=== PATIENT | female | born 1965 | race Caucasian/White ===

== ENCOUNTER 2017-05-13 18:28 | Emergency (ER) | payer OTHER ==
[~2017-05-13] VITALS: Ht 162.6 cm; Wt 104.5 kg
[~2017-05-13 18:28] MED LIST: ALPR.25 PO; PROT40TA PO
[2017-05-13 18:29] VITALS: BP 137/66; PULSE 121; RESP 20; TEMP 99.5; O2SAT 99
[2017-05-13 21:00] VITALS: BP 136/65; PULSE 116; RESP 18; O2SAT 95
[2017-05-13] MEDS ORDERED: methylPREDNISolone SOD SUCC 125 MG/2 ML VIAL IV PUSH ONE (21:00)
[2017-05-13] MEDS ORDERED: SODIUM CHLORIDE 0.9% FLUSH 10 ML FLUSH IVF PRN (21:00)
[2017-05-13] MEDS: RESP: ALBUTEROL 2.5 MG/IPRATROPIUM 0.5 MG NEB (SCH) INH ×2 (21:01→21:02)
[2017-05-13] MEDS ORDERED: ZITHTAB PO (21:04)
[2017-05-13] MEDS ORDERED: PRED10PA2 PO (21:04)
[2017-05-13] MEDS ORDERED: VENTAER INH (21:04)
--- NOTE | 2017-05-13 21:05 | PD ---
HPI . Cough Chief Complaint: Chest Pain Time Seen by Provider: 20:45 Travel History International Travel<30 days: No Contact w/Intl Traveler<30days: No Traveled to known affect area: No History of Present Illness HPI Patient presents with chief complaint of cough and chest pain. Onset was about 2 days ago. Exacerbated by coughing. She denies sputum production. She does have a fever. She has been taking DayQuil and NyQuil without relief. She reports a history of COPD but does not take any medications for her COPD. She states her COPD is very mild. The triage nurse got a pain level of 5/10. She reports her pain level is currently 0/10. The patient is here with her daughter who works here as a nurse. PFSH Past Medical History Autoimmune Disease: No Blood Disorders: No Heart Rhythm Problems: Yes (BRADYCARDIA) Cancer: No Cardiac Catheterization: Yes (2 MOS AGO --NEGATIVE RESULTS) Cardiovascular Problems: Yes Chest Pain: Yes COPD: Yes Diabetes: Yes Diminished Hearing: No Endocrine: No Genitourinary: No Musculoskeletal: No Neurologic: Yes (VERTIGO) Psychiatric: Yes (PANICK ATTACK) Respiratory: Yes : 3 Para: 2 Miscarriage: 1 : 0 Tubal Ligation: Yes Past Surgical History Gynecologic Surgery: Yes (TUBAL LIGATION IN 1997, D&C-LAPOROSCOPY) Hysterectomy: Yes Other Surgery: Yes Social History Alcohol Use: No Tobacco Use: Yes (QUIT FOR 16 YR) Substance Use: No (DENIES) Allergies-Medications (Allergen,Severity, Reaction): Coded Allergies: aspirin (Unverified Allergy, Severe, TONGUE SWELLS, 01/25/17) caffeine (Unverified Allergy, Severe, TONGUE SWELLS, 01/25/17) meperidine (Unverified Allergy, Severe, MEPERGAN FORT ONLY HAS PROBLEM WITH DEMROL COMPONENT, 01/25/17) orphenadrine (Unverified Allergy, Severe, TONGUE SWELLS, 01/25/17) oseltamivir (Unverified Adverse Reaction, Severe, SHAKES, 01/25/17) albuterol (Unverified Adverse Reaction, Mild, SHAKING, 01/25/17) Uncoded Allergies: MEPERGAN FORTIS (Allergy, Severe, Rash, 03/09/05) Reported Meds & Prescriptions Reported Meds & Active Scripts Active Zithromax Z-Kaleb (Azithromycin) 250 Mg Dspk 250 Mg PO DIRECTED 500 MG (2 tabs) day 1, then 1 tab days 2-5. Ventolin Hfa 18 GM Inh (Albuterol Sulfate) 90 Mcg/Act Aer 2 Puff INH Q4H PRN Prednisone (48) 10 mg tab Dose Pack (Prednisone) 10 Mg Dspk 10 Mg PO DIRECTED Reported Xanax 0.25 Mg (Alprazolam) Alprazolam 0.25 mg Tab 1 Tab PO Q6H PRN Protonix (Pantoprazole Sodium) 40 Mg Tab 40 Mg PO DAILY Review of Systems Except as stated in HPI: all other systems reviewed are Neg General / Constitutional: Positive: Fever Cardiovascular: Positive: Chest Pain or Discomfort Respiratory: Positive: Cough, Shortness of Breath Physical Exam Narrative GENERAL: Awake and alert and in no acute distress. SKIN: Warm and dry. Good color. HEAD: Normocephalic/atraumatic. EYES: Pupils are equal. Extraocular movements are intact. NECK: Normal range of motion. CARDIOVASCULAR: Regular rate and rhythm. RESPIRATORY: Nonlabored respirations. Good air movement. Some end expiratory wheezing. MUSCULOSKELETAL: Atraumatic. NEUROLOGICAL: Nonfocal. PSYCHIATRIC: Appropriate mood and affect. Data Data Last Documented VS Vital Signs Date Time Temp Pulse Resp B/P (MAP) Pulse Ox O2 Delivery O2 Flow Rate FiO2 05/13/17 20:56 18 05/13/17 18:29 99.5 121 137/66 (89) 99 Room Air Orders Orders Electrocardiogram (05/13/17 ) Basic Metabolic Panel (Bmp) (05/13/17 20:50) Complete Blood Count With Diff (05/13/17 20:50) Chest, Single Ap (05/13/17 20:50) Iv Access Insert/Monitor (05/13/17 20:50) Methylprednisolone So Succ Inj (Solumedr (05/13/17 21:00) Albuterol-Ipratropium Neb (Duoneb Neb) (05/13/17 21:00) Sodium Chloride 0.9% Flush (Ns Flush) (05/13/17 21:00) Labs Laboratory Tests Test 05/13/17 21:10 White Blood Count 13.4 TH/MM3 Red Blood Count 4.59 MIL/MM3 Hemoglobin 13.1 GM/DL Hematocrit 38.4 % Mean Corpuscular Volume 83.6 FL Mean Corpuscular Hemoglobin 28.6 PG Mean Corpuscular Hemoglobin Concent 34.2 % Red Cell Distribution Width 13.8 % Platelet Count 334 TH/MM3 Mean Platelet Volume 8.8 FL Neutrophils (%) (Auto) 60.6 % Lymphocytes (%) (Auto) 27.6 % Monocytes (%) (Auto) 8.8 % Eosinophils (%) (Auto) 2.3 % Basophils (%) (Auto) 0.7 % Neutrophils # (Auto) 8.1 TH/MM3 Lymphocytes # (Auto) 3.7 TH/MM3 Monocytes # (Auto) 1.2 TH/MM3 Eosinophils # (Auto) 0.3 TH/MM3 Basophils # (Auto) 0.1 TH/MM3 CBC Comment DIFF FINAL Differential Comment Blood Urea Nitrogen 7 MG/DL Creatinine 0.72 MG/DL Random Glucose 106 MG/DL Calcium Level 9.0 MG/DL Sodium Level 137 MEQ/L Potassium Level 3.4 MEQ/L Chloride Level 102 MEQ/L Carbon Dioxide Level 28.8 MEQ/L Anion Gap 6 MEQ/L Estimat Glomerular Filtration Rate 86 ML/MIN [place] Medical Decision Making Medical Screen Exam Complete: Yes Emergency Medical Condition: Yes Interpretation(s) EKG shows a sinus rhythm with no acute ischemic change. She is tachycardic at 111. Differential Diagnosis Differential diagnosis includes but is not limited to viral respiratory illness , bronchitis, pneumonia, allergies, CHF, asthma/COPD. Narrative Course This patient presents stating that she has a history of mild COPD and has had a cough and chest discomfort for the last couple days. She has some very mild wheezing on exam. She'll be treated here with Solu-Medrol and DuoNeb. Chest x- ray and labs are pending. The respiratory therapist reports that the patient took the first nebulizer treatment but refuses the next 2. She states that they make her jittery. She states that she has nebulizer treatments at home. CBC & BMP Diagram 05/13/17 21:10 Calcium Level 9.0 CXR>>Minimal basilar atelectasis. The chest x-ray was independently viewed by me. This is a COPD patient who presents with cough, shortness of breath, fever. She 'll be treated with steroids, albuterol and Zithromax. Diagnosis Primary Impression: COPD (chronic obstructive pulmonary disease) with acute bronchitis Patient Instructions: Acute Bronchitis (DC), General Instructions Med/Other Pt SpecificInfo: Prescription(s) given Scripts Azithromycin (Zithromax Z-Kaleb) 250 Mg Dspk 250 MG PO DIRECTED for Infection, #1 DSPK 0 Refills 500 MG (2 tabs) day 1, then 1 tab days 2-5. Prov: Iris Pena MD 05/13/17 Albuterol 18 GM Inh (Ventolin Hfa 18 GM Inh) 90 Mcg/Act Aer 2 PUFF INH Q4H Y for SHORTNESS OF BREATH, #1 INHALER 0 Refills Prov: Iris Pena MD 05/13/17 Prednisone (48) 10 mg tab Dose Pack (Prednisone (48) 10 mg tab Dose Pack) 10 Mg Dspk 10 MG PO DIRECTED for Inflammation, #1 DSPK 0 Refills Prov: Iris Pena MD 05/13/17 Disposition: 01 DISCHARGE HOME Condition: Stable Iris Pena MD May 13, 2017 21:05
[2017-05-13 21:23] LABS: AUTOMATED NEUTROPHIL # 8.1 TH/MM3 (1.8-7.7); BASOPHIL # 0.1 TH/MM3 (0-0.2); BASOPHIL % 0.7 % (0.0-2.0); EOSINOPHIL # 0.3 TH/MM3 (0-0.4); EOSINOPHIL % 2.3 % (0.0-4.0); HEMATOCRIT 38.4 % (35.0-46.0); HEMO FLAGS DIFF FINAL; LYMPH % 27.6 % (9.0-44.0); LYMPHOCYTE # 3.7 TH/MM3 (1.0-4.8); MEAN CELL VOLUME 83.6 FL (80.0-100.0); MEAN CORPUSCULAR HEMOGLOBIN 28.6 PG (27.0-34.0); MEAN CORPUSCULAR HGB CONC 34.2 % (32.0-36.0); MONO % 8.8 % (0.0-8.0); NEUT % 60.6 % (16.0-70.0); PLATELET COUNT 334 TH/MM3 (150-450); RED BLOOD COUNT 4.59 MIL/MM3 (4.00-5.30); RED CELL DISTRIBUTION WIDTH 13.8 % (11.6-17.2); WHITE BLOOD COUNT 13.4 TH/MM3 (4.0-11.0)
[2017-05-13 21:39] LABS: BICARBONATE 28.8 MEQ/L (21.0-32.0); POTASSIUM 3.4 MEQ/L (3.5-5.1)
--- NOTE | 2017-05-13 22:01 | RADRPT ---
EXAM DATE/TIME: 05/13/2017 21:09 [facility] COMPARISON: No previous studies available for comparison. INDICATIONS : Chest pain and shortness of breath due to cough. MEDICAL HISTORY : Chronic obstructive pulmonary disease. Bradycardia, Diabetes, SURGICAL HISTORY : Tubal ligation. Hysterectomy. Cardiac cath. ENCOUNTER: Initial ACUITY: 3 days PAIN SCORE: 8/10 LOCATION: Bilateral chest FINDINGS: A single view of the chest demonstrates the lungs to be symmetrically aerated without evidence of mas s, infiltrate or effusion. Minimal basilar atelectasis. The cardiomediastinal contours are unremarka ble. Osseous structures are intact. CONCLUSION: 1. Minimal basilar atelectasis. Clinton Evans MD on May 13, 2017 at 21:59 Board Certified Radiologist. This report was verified electronically.
[2017-05-13 22:27] VITALS: BP 126/58; PULSE 119; RESP 18; O2SAT 95
--- NOTE | 2017-05-15 23:19 | EKG ---
Date Performed: 05/13/2017 Time Performed: 18:47:44 PTAGE: 51 years EKG: SINUS TACHYCARDIA POSSIBLE LEFT ATRIAL ENLARGEMENT ABNORMAL RHYTHM ECG PREVIOUS TRACING : 01/06/2016 17.55 Compared to the previous tracing sinus tachycardia is new DOCTOR: Aubrey Oleary Interpretating Date/Time 05/15/2017 23:17:50
== END 2017-05-13 22:38 | disposition home or self-care (01) ==
LOC: NEPD 18:28
DX: J44.9 Chronic obstructive pulmonary disease, unspecified (principal); J20.9 Acute bronchitis, unspecified; R00.0 Tachycardia, unspecified; E11.9 Type 2 diabetes mellitus without complications; R94.31 Abnormal electrocardiogram [ECG] [EKG]; Z79.899 Other long term (current) drug therapy; Z88.6 Allergy status to analgesic agent; Z88.8 Allergy status to other drugs, medicaments and biological substances
CPT/HCPCS: 71010; 80048; 85025; 93005; 94664; 96374; 99285; J2930

== ENCOUNTER 2017-07-12 16:01 | Emergency (ER) | payer OTHER ==
[~2017-07-12] VITALS: Ht 162.6 cm; Wt 109.1 kg
[~2017-07-12 16:01] MED LIST changes: +PRED10PA2 PO; +VENTAER INH; +ZITHTAB PO
[2017-07-12 16:02] VITALS: BP 149/71; PULSE 95; RESP 17; TEMP 98.5; O2SAT 99
--- NOTE | 2017-07-12 16:28 | RADRPT ---
EXAM DATE/TIME: 07/12/2017 16:25 [facility] COMPARISON: CHEST SINGLE AP, May 13, 2017, 21:09. INDICATIONS : Chest pain. MEDICAL HISTORY : None. SURGICAL HISTORY : None. ENCOUNTER: Initial ACUITY: 1 day PAIN SCORE: 4/10 LOCATION: Bilateral chest FINDINGS: PA and lateral views of the chest demonstrate the lungs to be symmetrically aerated without evidence of mass, infiltrate or effusion. The cardiomediastinal contours are unremarkable. Osseous structure s are intact. CONCLUSION: No acute disease. Emmanuel Oswald MD on July 12, 2017 at 16:25 Board Certified Radiologist. This report was verified electronically.
[2017-07-12] MEDS ORDERED: ATEN25TA PO (17:06)
[2017-07-12] MEDS ORDERED: PROT40TA PO (17:06)
[2017-07-12] MEDS ORDERED: VITA200013 PO (17:06)
--- NOTE | 2017-07-12 17:06 | PD ---
HPI Chief Complaint: Edema Time Seen by Provider: 17:06 Travel History International Travel<30 days: No Contact w/Intl Traveler<30days: No Traveled to known affect area: No History of Present Illness HPI 51-year-old female came to the emergency room with history of bilateral leg edema. Patient says this has been going on for the past 2 days. Yesterday she had some aching of both of her legs as well. She has occasional shortness of breath. Vital signs are stable. No history of congestive heart failure. No history of chest pain. Patient has not had swelling of her legs like this in the past. [facility] Past Medical History Narrative Medical List of her past medical, surgical, social and family history reviewed from the nursing note. Autoimmune Disease: No Blood Disorders: No Heart Rhythm Problems: Yes (BRADYCARDIA) Cancer: No Cardiac Catheterization: Yes (2 MOS AGO --NEGATIVE RESULTS) Cardiovascular Problems: Yes (HTN) Chest Pain: Yes COPD: Yes Diabetes: Yes Diminished Hearing: No Endocrine: No Genitourinary: No Musculoskeletal: No Neurologic: Yes (VERTIGO) Psychiatric: Yes (PANICK ATTACK) Respiratory: Yes : 3 Para: 2 Miscarriage: 1 : 0 Tubal Ligation: Yes Past Surgical History Gynecologic Surgery: Yes (TUBAL LIGATION IN 1997, D&C-LAPOROSCOPY, HYSTERECTOMY ) Hysterectomy: Yes Other Surgery: Yes Social History Alcohol Use: No Tobacco Use: Yes (QUIT FOR 20 YR) Substance Use: No (DENIES) Allergies-Medications (Allergen,Severity, Reaction): Coded Allergies: aspirin (Unverified Allergy, Severe, TONGUE SWELLS, 07/12/17) caffeine (Unverified Allergy, Severe, TONGUE SWELLS, 07/12/17) meperidine (Unverified Allergy, Severe, MEPERGAN FORT ONLY HAS PROBLEM WITH DEMROL COMPONENT, 07/12/17) orphenadrine (Unverified Allergy, Severe, TONGUE SWELLS, 07/12/17) oseltamivir (Unverified Adverse Reaction, Severe, SHAKES, 07/12/17) albuterol (Unverified Adverse Reaction, Mild, SHAKING, 07/12/17) Uncoded Allergies: MEPERGAN FORTIS (Allergy, Severe, Rash, 03/09/05) Comments List of her allergies reviewed from the nursing note. Reported Meds & Prescriptions Reported Meds & Active Scripts Active Ventolin Hfa 18 GM Inh (Albuterol Sulfate) 90 Mcg/Act Aer 2 Puff INH Q4H PRN Reported Vitamin D (Cholecalciferol) 2,000 Unit Cap 5,000 Tab PO DAILY Atenolol 25 Mg Tab 25 Mg PO DAILY Protonix (Pantoprazole Sodium) 40 Mg Tab 40 Mg PO DAILY Narrative Medication List of her home medications reviewed from the nursing note. Review of Systems Except as stated in HPI: all other systems reviewed are Neg Musculoskeletal: Positive: Edema Physical Exam Narrative GENERAL: Awake, alert, no obvious distress SKIN: Focused skin assessment warm/dry. HEAD: Atraumatic. Normocephalic. EYES: Pupils equal and round. No scleral icterus. No injection or drainage. ENT: No nasal bleeding or discharge. Mucous membranes pink and moist. NECK: Trachea midline. No JVD. CARDIOVASCULAR: Regular rate and rhythm. No murmur appreciated. RESPIRATORY: No accessory muscle use. Clear to auscultation. Breath sounds equal bilaterally. GASTROINTESTINAL: Abdomen soft, non-tender, nondistended. Hepatic and splenic margins not palpable. MUSCULOSKELETAL: No obvious deformities. No clubbing. No cyanosis. Bilateral pedal edema NEUROLOGICAL: Awake and alert. No obvious cranial nerve deficits. Motor grossly within normal limits. Normal speech. PSYCHIATRIC: Appropriate mood and affect; insight and judgment normal. Data Data Last Documented VS Vital Signs Date Time Temp Pulse Resp B/P (MAP) Pulse Ox O2 Delivery O2 Flow Rate FiO2 07/12/17 21:55 07/12/17 19:21 75 14 98 Room Air 07/12/17 16:02 98.5 Orders Orders Electrocardiogram (07/12/17 16:15) B-Type Natriuretic Peptide (07/12/17 16:15) Ckmb (Isoenzyme) Profile (07/12/17 16:15) Complete Blood Count With Diff (07/12/17 16:15) Comprehensive Metabolic Panel (07/12/17 16:15) Magnesium (Mg) (07/12/17 16:15) Prothrombin Time / Inr (Pt) (07/12/17 16:15) Act Partial Throm Time (Ptt) (07/12/17 16:15) Troponin I (07/12/17 16:15) Chest, Pa & Lat (07/12/17 16:15) Us Leg Venous Doppler Bilat (07/12/17 ) Potassium Chloride (Kcl) (07/12/17 19:15) Thyroid Stimulating Hormone (07/12/17 19:48) Ed Discharge Order (07/12/17 21:36) Labs Laboratory Tests Test 07/12/17 17:20 White Blood Count 7.9 TH/MM3 Red Blood Count 4.80 MIL/MM3 Hemoglobin 13.9 GM/DL Hematocrit 40.3 % Mean Corpuscular Volume 83.9 FL Mean Corpuscular Hemoglobin 29.0 PG Mean Corpuscular Hemoglobin Concent 34.5 % Red Cell Distribution Width 14.3 % Platelet Count 304 TH/MM3 Mean Platelet Volume 9.1 FL Neutrophils (%) (Auto) 48.2 % Lymphocytes (%) (Auto) 41.7 % Monocytes (%) (Auto) 7.5 % Eosinophils (%) (Auto) 2.0 % Basophils (%) (Auto) 0.6 % Neutrophils # (Auto) 3.8 TH/MM3 Lymphocytes # (Auto) 3.3 TH/MM3 Monocytes # (Auto) 0.6 TH/MM3 Eosinophils # (Auto) 0.2 TH/MM3 Basophils # (Auto) 0.1 TH/MM3 CBC Comment DIFF FINAL Differential Comment Prothrombin Time 10.1 SEC Prothromb Time International Ratio 1.0 RATIO Activated Partial Thromboplast Time 26.7 SEC Blood Urea Nitrogen 9 MG/DL Creatinine 0.75 MG/DL Random Glucose 107 MG/DL Total Protein 7.8 GM/DL Albumin 4.2 GM/DL Calcium Level 9.4 MG/DL Magnesium Level 2.1 MG/DL Alkaline Phosphatase 75 U/L Aspartate Amino Transf (AST/SGOT) 19 U/L Alanine Aminotransferase (ALT/SGPT) 33 U/L Total Bilirubin 0.3 MG/DL Sodium Level 139 MEQ/L Potassium Level 3.3 MEQ/L Chloride Level 104 MEQ/L Carbon Dioxide Level 28.6 MEQ/L Anion Gap 6 MEQ/L Estimat Glomerular Filtration Rate 82 ML/MIN Total Creatine Kinase 90 U/L Troponin I LESS THAN 0.02 NG/ML B-Type Natriuretic Peptide 15 PG/ML Thyroid Stimulating Hormone 3rd Gen 1.630 uIU/ML MDM Medical Decision Making Medical Screen Exam Complete: Yes Emergency Medical Condition: Yes Medical Record Reviewed: Yes Interpretation(s) Twelve-lead EKG was reviewed by me. Normal sinus rhythm, normal axis, nonspecific ST-T wave changes, PACs. Heart rate of 82 bpm. Differential Diagnosis DVT, dependent edema, CHF Narrative Course 7:01 PM blood test results are back and within acceptable limits. Chest x-ray is negative. Awaiting for the ultrasound of the legs to be done and resulted. Case will be signed over to the oncoming ER physician. Procedures EKG Prior to Arrival: Harsha Lambert MD Jul 12, 2017 17:06
[2017-07-12 18:06] VITALS: BP 137/59; PULSE 82; RESP 14; O2SAT 99
[2017-07-12 18:15] LABS: AUTOMATED NEUTROPHIL # 3.8 TH/MM3 (1.8-7.7); BASOPHIL # 0.1 TH/MM3 (0-0.2); BASOPHIL % 0.6 % (0.0-2.0); EOSINOPHIL # 0.2 TH/MM3 (0-0.4); HEMATOCRIT 40.3 % (35.0-46.0); HEMOGLOBIN 13.9 GM/DL (11.6-15.3); LYMPH % 41.7 % (9.0-44.0); LYMPHOCYTE # 3.3 TH/MM3 (1.0-4.8); MEAN CELL VOLUME 83.9 FL (80.0-100.0); MEAN CORPUSCULAR HGB CONC 34.5 % (32.0-36.0); MEAN PLATELET VOLUME 9.1 FL (7.0-11.0); MONO % 7.5 % (0.0-8.0); MONOCYTE # 0.6 TH/MM3 (0-0.9); NEUT % 48.2 % (16.0-70.0); PLATELET COUNT 304 TH/MM3 (150-450); RED CELL DISTRIBUTION WIDTH 14.3 % (11.6-17.2); WHITE BLOOD COUNT 7.9 TH/MM3 (4.0-11.0)
[2017-07-12 18:34] LABS: ALBUMIN 4.2 GM/DL (3.4-5.0); AST (GOT) 19 U/L (15-37); BICARBONATE 28.6 MEQ/L (21.0-32.0); BLOOD UREA NITROGEN 9 MG/DL (7-18); CALCIUM 9.4 MG/DL (8.5-10.1); CHLORIDE 104 MEQ/L (98-107); CREATININE 0.75 MG/DL (0.50-1.00); GLOMERULAR FILTRATION RATE 82 ML/MIN (>89); GLUCOSE,RANDOM 107 MG/DL (74-106); MAGNESIUM 2.1 MG/DL (1.5-2.5); SODIUM (NA) 139 MEQ/L (136-145)
[2017-07-12 18:36] LABS: ALT (GPT) 33 U/L (10-53)
[2017-07-12 18:37] LABS: PROTHROMBIN TIME - PATIENT 10.1 SEC (9.8-11.6)
[2017-07-12 18:40] LABS: ALKALINE PHOSPHATASE 75 U/L (45-117); TOTAL BILIRUBIN ADULT 0.3 MG/DL (0.2-1.0); TOTAL PROTEIN 7.8 GM/DL (6.4-8.2); TROPONIN I LESS THAN 0.02 NG/ML (0.02-0.05)
--- NOTE | 2017-07-12 19:09 | PD ---
Data Data Last Documented VS Vital Signs Date Time Temp Pulse Resp B/P (MAP) Pulse Ox O2 Delivery O2 Flow Rate FiO2 07/12/17 19:21 75 14 133/62 (85) 98 Room Air 07/12/17 16:02 98.5 Orders Orders Electrocardiogram (07/12/17 16:15) B-Type Natriuretic Peptide (07/12/17 16:15) Ckmb (Isoenzyme) Profile (07/12/17 16:15) Complete Blood Count With Diff (07/12/17 16:15) Comprehensive Metabolic Panel (07/12/17 16:15) Magnesium (Mg) (07/12/17 16:15) Prothrombin Time / Inr (Pt) (07/12/17 16:15) Act Partial Throm Time (Ptt) (07/12/17 16:15) Troponin I (07/12/17 16:15) Chest, Pa & Lat (07/12/17 16:15) Us Leg Venous Doppler Bilat (07/12/17 ) Potassium Chloride (Kcl) (07/12/17 19:15) Thyroid Stimulating Hormone (07/12/17 19:48) Labs Laboratory Tests Test 07/12/17 17:20 White Blood Count 7.9 TH/MM3 Red Blood Count 4.80 MIL/MM3 Hemoglobin 13.9 GM/DL Hematocrit 40.3 % Mean Corpuscular Volume 83.9 FL Mean Corpuscular Hemoglobin 29.0 PG Mean Corpuscular Hemoglobin Concent 34.5 % Red Cell Distribution Width 14.3 % Platelet Count 304 TH/MM3 Mean Platelet Volume 9.1 FL Neutrophils (%) (Auto) 48.2 % Lymphocytes (%) (Auto) 41.7 % Monocytes (%) (Auto) 7.5 % Eosinophils (%) (Auto) 2.0 % Basophils (%) (Auto) 0.6 % Neutrophils # (Auto) 3.8 TH/MM3 Lymphocytes # (Auto) 3.3 TH/MM3 Monocytes # (Auto) 0.6 TH/MM3 Eosinophils # (Auto) 0.2 TH/MM3 Basophils # (Auto) 0.1 TH/MM3 CBC Comment DIFF FINAL Differential Comment Prothrombin Time 10.1 SEC Prothromb Time International Ratio 1.0 RATIO Activated Partial Thromboplast Time 26.7 SEC Blood Urea Nitrogen 9 MG/DL Creatinine 0.75 MG/DL Random Glucose 107 MG/DL Total Protein 7.8 GM/DL Albumin 4.2 GM/DL Calcium Level 9.4 MG/DL Magnesium Level 2.1 MG/DL Alkaline Phosphatase 75 U/L Aspartate Amino Transf (AST/SGOT) 19 U/L Alanine Aminotransferase (ALT/SGPT) 33 U/L Total Bilirubin 0.3 MG/DL Sodium Level 139 MEQ/L Potassium Level 3.3 MEQ/L Chloride Level 104 MEQ/L Carbon Dioxide Level 28.6 MEQ/L Anion Gap 6 MEQ/L Estimat Glomerular Filtration Rate 82 ML/MIN Total Creatine Kinase 90 U/L Troponin I LESS THAN 0.02 NG/ML B-Type Natriuretic Peptide 15 PG/ML Thyroid Stimulating Hormone 3rd Gen 1.630 uIU/ML MDM Medical Record Reviewed: Yes Supervised Visit with SHEBA: No Narrative Course During the course of the patients emergency department visit, the patients history, examination, and differential diagnosis were reviewed with the patient. The patient was placed on a cardiac technologist with oximetry and frequent blood pressure monitoring. The patient had IV access obtained and blood work sent for analysis. The patient's case is checked out to me by Dr. Rivera. Please see her complete history and physical. The patient's case was checked out to me at the conclusion of her shift ending BNP results and ultrasound of the lower extremity results. The patient presents with lower extremity edema with intermittent leg pain. The patients laboratory studies were reviewed and remarkable for a CBC that is within normal limits. CMP is remarkable for potassium of 3.3 which was supplemented orally, glucose 107, cardiac enzymes within normal limits, BNP 15- ruling out congestive heart failure, albumin within normal limits at 4.2. PT 10.1, PTT 26.7. Radiology studies were reviewed and remarkable for a chest x-ray that shows no acute cardiopulmonary disease. The patient is resting comfortably and feels better, is alert and in no distress. The patients results and examination findings were discussed with the patient. The repeat examination is unremarkable and benign. The history, exam, diagnostic testing, and current condition do not suggest any significant pathology to warrant further testing, continued ED treatment, admission, or surgical evaluation at this point. The vital signs have been stable. The patient does not have uncontrollable pain, intractable vomiting, or other significant symptoms. The patient's condition is stable and appropriate for discharge. The patient will pursue further outpatient evaluation with a primary care physician or other designated or consulting physician as indicated in the discharge instructions. The patient expressed understanding and was agreeable with this plan. Diagnosis Primary Impression: Leg edema Referrals: Primary Care Physician Patient Instructions: General Instructions, Leg Edema (ED) Disposition: 01 DISCHARGE HOME Condition: Stable Olimpia Lemons MD Jul 12, 2017 19:09
[2017-07-12] MEDS ORDERED: POTASSIUM CHLORIDE 20 MEQ CONTROLLED RELEASE TAB PO ONE (19:15)
[2017-07-12 19:21] VITALS: BP 133/62; PULSE 75; RESP 14; O2SAT 98
--- NOTE | 2017-07-12 20:34 | RADRPT ---
EXAM DATE/TIME: 07/12/2017 18:28 [facility] COMPARISON: No previous studies available for comparison. INDICATIONS : Bilateral leg swelling. MEDICAL HISTORY : Chronic obstructive pulmonary disease. Vertigo. Bradycardia. . Diabetes. Anxiety. SURGICAL HISTORY : Tubal ligation.Hysterectomy. Dilation and curettage. Cardiac catheterization. ENCOUNTER: Initial ACUITY: 1 day PAIN SCORE: 3/10 LOCATION: Bilateral legs. TECHNIQUE: Venous ultrasound of the left and right leg was performed from the inguinal ligament to the proximal calf. Real-time, color Doppler and spectral tracing, compression and augmentation techniques were us ed. FINDINGS: RIGHT LEG: There is normal compressibility of the deep venous system from the inguinal region to the proximal ca lf. No echogenic clot is seen in the lumen of the common femoral, femoral, popliteal, and posterior tibial veins. There is a normal response of the venous system to proximal and distal augmentation an d respiration. LEFT LEG: There is normal compressibility of the deep venous system from the inguinal region to the proximal ca lf. No echogenic clot is seen in the lumen of the common femoral, femoral, popliteal, and posterior tibial veins. There is a normal response of the venous system to proximal and distal augmentation an d respiration. CONCLUSION: No evidence of deep venous thrombosis within the lower extremities. Scotty Philip MD on July 12, 2017 at 20:31 Board Certified Radiologist. This report was verified electronically.
--- NOTE | 2017-07-13 09:40 | EKG ---
Date Performed: 07/12/2017 Time Performed: 17:11:16 PTAGE: 51 years EKG: Sinus rhythm WITH OCCASIONAL SUPRAVENTRICULAR PREMATURE COMPLEXES BORDERLINE ECG Since the prior tracing, there h as been no significant change PREVIOUS TRACING : 05/13/2017 18.47 DOCTOR: Krzysztof Demarco Interpretating Date/Time 07/13/2017 09:39:32
== END 2017-07-12 21:57 | disposition home or self-care (01) ==
LOC: NEPC 16:01
DX: R60.0 Localized edema (principal); J44.9 Chronic obstructive pulmonary disease, unspecified; R07.9 Chest pain, unspecified; I10 Essential (primary) hypertension; Z79.899 Other long term (current) drug therapy; Z87.891 Personal history of nicotine dependence
CPT/HCPCS: 71046; 80053; 82550; 83735; 83880; 84443; 84484; 85025; 85610; 85730; 93005; 93970; 99285